=== PATIENT | female | born 1985 | race Caucasian/White ===

== ENCOUNTER 2018-10-08 13:52 | Outpatient (CLI) | payer BC ==
--- NOTE | 2018-10-08 15:19 | MRI ---
RIGHT SHOULDER MRI WITHOUT IV CONTRAST: HISTORY: Injury to right shoulder 1 year ago with pain. FINDINGS: Multiplanar, multisequence MRI examination of the right shoulder is performed. Very mild AC joint ar throsis changes are noted. Moderate downsloping of the lateral acromion. Supraspinatus, infraspinat us, subscapularis, and biceps tendons appear intact. Rotator cuff muscles are within normal limits o f signal and volume. There is evidence for a fairly prominent SLAP tear with anterior and posterior extension with some small paralabral cysts noted involving the superior posterior labrum. No acute o steochondral defect. IMPRESSION: Prominent superior labrum anterior to posterior tear with anterior posterior extension. No evidence for rotator cuff tear. Downsloping of the lateral acromion. POS: TPC
== END 2018-10-08 13:53 | disposition home or self-care (01) ==
LOC: TBSIIMAG 13:52
PROVIDERS: ATTEND Orthopaedic Surgery
DX: S49.91XA Unspecified injury of right shoulder and upper arm, initial encounter (principal); S43.401A Unspecified sprain of right shoulder joint, initial encounter

== ENCOUNTER 2018-12-15 08:00 | Day surgery (SDC) | payer BC ==
[2018-12-15 08:59] VITALS: BMI 33.3
[2018-12-15] MEDS ORDERED: hydrALAZINE 20 MG/ML VIAL SLOW IVP PRN (09:00)
--- NOTE | 2018-12-15 13:06 | PRG ---
DATE OF SERVICE: 12/15/2018 PRIMARY OB: David Beck DO, MS CHIEF COMPLAINT: Abdominal pain. HISTORY OF PRESENT ILLNESS: The patient is a 33-year-old G2, P1 female with an intrauterine at 37 weeks and 4 days, presenting with abdominal pains that have been irregular since last night. The patient awoke around 11:00 p.m. feeling cramping and got woken up this morning about 4 with stronger contractions have not gone away. Her main concern is that with her previous , she made it to the hospital with only 30 minutes to spare before the baby was born and is worried that she may not make it this time. The patient lives about an hour away from the hospital. The patient denies any vaginal bleeding or leakage of fluid. She denies any urinary urgency or frequency. She denies fever, fall, headache, chest pain, shortness of breath, nausea, vomiting, diarrhea, constipation, hip problems, knee problems, or muscle weakness. Denies any new rashes. PAST MEDICAL HISTORY: Negative. PAST SURGICAL HISTORY: Negative. ALLERGIES: NO KNOWN DRUG ALLERGIES. MEDICATIONS: vitamins. SOCIAL HISTORY: Denies drug, alcohol, or tobacco use. OB LABS: Blood type is O negative. Antibody screen is negative. Hepatitis B surface antigen in the first trimester is negative. HIV in the first trimester and third trimester negative. GC and chlamydia negative. She is rubella immune. Diabetes screen is 118. Third trimester VDRL is nonreactive. She is group B strep negative. REVIEW OF SYSTEMS: Per HPI. PHYSICAL EXAMINATION: VITAL SIGNS: Blood pressure is 134/80, heart rate of 104, and respiratory rate 18. GENERAL: She appears to be in no acute distress. She is alert, oriented, cooperative, and pleasant to interact with. HEAD: Normocephalic and atraumatic. LUNGS: Clear to auscultation bilaterally. ABDOMEN: Gravid and soft. EXTREMITIES: Nontender and nonedematous. Cervix per nursing staff is 2.5, 70, -2 station. heart tracing shows the fetus with a baseline 150 with moderate long-term variability, positive 15 x 15 accelerations, no decelerations. The tocometer showing contractions about every 15 to 20 minutes with some irritability in between. Repeat cervical exam is unchanged. ASSESSMENT AND PLAN: The patient is a 33-year-old G2, P1 female with an intrauterine at 37 weeks and 4 days, presenting with what may be late in labor. The patient has an appointment in a few hours with her primary OB and that we have encouraged that she keep. The patient has no evidence of active labor at this time and is comfortable. She is being discharged home and will be re-evaluated by Dr. Beck, later this afternoon. Fetus has a category 1 tracing, reactive NST. The patient has been given term labor precautions. Job ID: [id number]
== END 2018-12-15 11:20 | disposition home health service (06) ==
LOC: L&D/OP 08:00
PROVIDERS: ATTEND Obstetrics & Gynecology
DX: O99.89 Other specified diseases and conditions complicating pregnancy, childbirth and the puerperium (principal); R10.9 Unspecified abdominal pain; Z3A.37 37 weeks gestation of pregnancy
CPT/HCPCS: 99283

== ENCOUNTER 2018-12-30 05:30 | Inpatient (IN) | payer BC ==
--- NOTE | 2018-12-29 14:30 | PDOC.LDHP ---
Labor and Delivery H&P Chief complaint: scheduled induction HPI: Scheduled for IOL @ 39 weeks, elective. Current gestational age (weeks): 39 Due date: 01/01/19 Dating criteria: last menstrual period, first trimester ultrasound Grav: 2 Para: 1 OB History Details: 2017 8# Current complications: none Abnormal US findings: No Past Medical History: DIOP Current medications: pre- vitamins, other (fioricet for DIOP) Previous surgical history: none Allergies/Adverse Reactions: Allergies Allergy/AdvReac Type Severity Reaction Status Date / Time No Known Allergies Allergy Verified 10/08/16 15:01 Social history: none - Physical Exam Vital signs reviewed and normal: yes General: NAD Heart: RRR Lungs: CTAB Abdomen: gravid Extremeties: no edema - Vaginal Exam cm dilated: 4 Effacement: 50% Station: -2 - OB Labs Blood type: O RH: negative Antibody Screen: negative HIV: negative RPR: negative HEPSAg: negative 1 hour GCT: negative GBS: negative Urine drug screen: negative Rubella: immune - Assessment L&D Assessment: elective induction at term - Plan Plan: admit to L&D, labor augmentation if indicated, informed consent obtained, anesthesia consult for pain management
[2018-12-30] MEDS ORDERED: NS / Oxytocin 40 units/1000ml 1,000 ML IV PRN (05:51)
[2018-12-30] MEDS ORDERED: Promethazine HCl 25 MG/ML VIAL IM PRN ×2 (05:51→10:28)
[2018-12-30] MEDS ORDERED: Butorphanol Tartrate 1 MG/ML VIAL SLOW IVP PRN ×2 (05:51→22:30)
[2018-12-30] MEDS ORDERED: Lidocaine 1% (PF) 30 ML VIAL SC PRN (05:51)
[2018-12-30] MEDS ORDERED: Ondansetron PF 4 MG/2 ML Vial IVP PRN ×2 (05:51→10:28)
[2018-12-30] MEDS ORDERED: Ibuprofen 800 MG TAB PO PRN (05:51)
[2018-12-30] MEDS ORDERED: HYDROcodone/Acetaminophen 5/325 mg Tablet PO PRN ×2 (05:51)
[2018-12-30] MEDS ORDERED: hydrALAZINE 20 MG/ML VIAL SLOW IVP PRN ×2 (05:51→12:59)
[2018-12-30] MEDS ORDERED: NS w/ Oxytocin 10 units 500 ML IV SCH ×2 (06:00)
[2018-12-30 06:05] VITALS: BMI 33.7
[2018-12-30] MEDS: Lactated Ringer's 1,000 ML IV SCH ×2 (06:21→20:27)
[2018-12-30 06:38] LABS: Hemoglobin 12.1 g/dL (12.0-16.0); Mean Corpuscular HGB CONC 33.5 g/dL (32.0-36.0); Mean Corpuscular Hemoglobin 30.2 pg (27.0-31.0); Mean Corpuscular Volume 90.2 fL (78.0-98.0); Mean Platelet Volume 9.3 fL (7.4-10.4); Platelet Count 167 thou/uL (130-400); RBC Distribution Width 12.4 % (11.5-14.5); White Blood Cell (WBC) Count 7.8 thou/uL (4.8-10.8)
[2018-12-30 07:19] LABS: Syphilis Antibody Nonreactive (Nonreactive); Syphilis Antibody Index 0.06 S/CO (<1.00 Non-Reactive)
[2018-12-30 07:20] LABS: HBSAg Index 0.18 S/CO (0-0.99); Hep B Surf Ag Non-Reactive S/CO (NonReactive)
[2018-12-30] MEDS ORDERED: Mineral Oil ENEMA PR SCH (08:15)
[2018-12-30] MEDS ORDERED: Terbutaline Sulfate 1 MG/ML VIAL SC SCH (08:15)
--- NOTE | 2018-12-30 08:31 | PDOC.EVN ---
Event Note - Event Note Event Note: On presentation to L and D US confirms Silver breech presentation, normal NATACHA and SVE 5cm. Pt aware of risk and benefits of ECV as well as 1CS. Pt consents to ECV, will administer terbutaline and prepare OR if needed.
[2018-12-30] MEDS ORDERED: Bicitra 30 ML UDCUP ONE (08:57)
[2018-12-30] MEDS ORDERED: Oxytocin 10 UNITS/ML VIAL ONE (09:12)
[2018-12-30] MEDS ORDERED: Promethazine HCl 25 MG/ML VIAL ONE (09:13)
[2018-12-30] MEDS ORDERED: Fentanyl 100 MCG/2 ML VIAL ONE (09:13)
[2018-12-30] MEDS ORDERED: ePHEDrine/0.9% NaCl/PF SYRINGE 50 mg/10 ml ONE (09:13)
[2018-12-30] MEDS ORDERED: Succinylcholine Chloride 20 MG/ML 10 ml SYRINGE FS ONE (09:14)
[2018-12-30] MEDS ORDERED: MORPHINE 5 MG/10 ML PF VIAL ONE (09:25)
[2018-12-30] MEDS ORDERED: Bicitra 30 ML UDCUP PO SCH (09:30)
[2018-12-30] MEDS ORDERED: CEFAZOLIN 2 GM in Premix Bag 1 BAG IVPB SCH (09:30)
--- NOTE | 2018-12-30 09:37 | PDOC.EVN ---
Event Note - Event Note Event Note: ECV procedure note Surg Morris Assist [facility] US guided ECV trial Informed consent obtained Terbutaline given prior 0.25mg subcut Mineral oil applied to abdomen Attempts made to forward roll patient x 2, reverse roll attempted, unable to successfully complete version. FHT reassuring throughout procedure trial and mother tolerated procedure well. Consented for 1CS.
--- NOTE | 2018-12-30 10:16 | PDOC.OPDEL ---
OB Operative/Delivery Note Delivery Dr/Surgeon: Kiran Assist: Arturo/Sebastian Pre-Delivery Diagnosis: breech (failed ECV) Procedure/Post Delivery Dx: primary low transverse CS Weeks gestation: 39 Anesthesia: spinal - Findings A Sex: male - 1 min: 8 - 5 min: 9 - Additional Findings/Plan Placenta delivered: spontaneous findings: low transverse hysterotomy without extension, normal uterus, normal tubes, normal ovaries Estimated blood loss: 500ml, QBL pending Compilations/Other Findings: none, delivered from Silver breech Post delivery plan: routine recovery
[2018-12-30] MEDS ORDERED: Naloxone HCl 0.4 mg/ml Vial IVP PRN ×2 (10:28)
[2018-12-30] MEDS ORDERED: Naloxone HCl 0.4 mg/ml Vial IV PRN (10:28)
[2018-12-30] MEDS ORDERED: diphenhydrAMINE 50 MG/ML VIAL IVP PRN (10:28)
[2018-12-30] MEDS ORDERED: Ketorolac Tromethamine 30 MG/ML VIAL IVP PRN (10:28)
[2018-12-30] MEDS ORDERED: Promethazine HCl 25 MG SUPP PR PRN (10:28)
[2018-12-30] MEDS ORDERED: Communication Order-Pharmacy FS SCH (10:30)
[2018-12-30] MEDS ORDERED: Bisacodyl 10 MG SUPP PR PRN (12:59)
[2018-12-30] MEDS ORDERED: Acetaminophen 325 MG TAB PO PRN (12:59)
[2018-12-30] MEDS ORDERED: diphenhydrAMINE 25 MG CAP PO PRN (12:59)
[2018-12-30] MEDS ORDERED: Lanolin Ointment 7 GM TUBE TOP PRN (12:59)
[2018-12-30] MEDS ORDERED: Adacel (T-DAP) 0.5 ML SYRINGE IM ONE (12:59)
[2018-12-30] MEDS ORDERED: Simethicone Chewable 80 MG TAB PO PRN (12:59)
--- NOTE | 2018-12-30 15:12 | OP ---
DATE OF PROCEDURE: 12/30/2018 PREOPERATIVE DIAGNOSES: 1. Thirty-nine weeks gestation. 2. Kurt breech presentation. 3. Failed external cephalic version. POSTOPERATIVE DIAGNOSIS: Status post section. PROCEDURE PERFORMED: Primary low transverse section. ASSISTANTS: Iván Morris MD and Melissa Cortes MD. COMPLICATIONS: None. ESTIMATED BLOOD LOSS: Less than 500 mL. QBL: Pending. ANESTHESIA: Spinal. COMPLICATIONS: None. OPERATIVE FINDINGS: 1. Low-transverse hysterotomy without extension. 2. Clear amniotic fluid. 3. Male delivered from kurt breech presentation without difficulty. 4. Apgars 8 and 9, and weight pending at the time of dictation. 5. Surgical site hemostatic. 6. Normal-appearing uterus, tubes, and ovaries bilaterally. DESCRIPTION OF PROCEDURE: The patient was taken back to the OR with IV fluids running. When she was in the OR, spinal anesthesia was obtained. The patient was then placed in dorsal supine position with a left lateral tilt. Pham catheter was placed using sterile technique. 2 g of Ancef were administered, and the abdomen was prepped and draped in normal fashion for section. Surgeons were gowned and gloved. Anesthesia was tested and found to be adequate. A Pfannenstiel skin incision was made with a scalpel. The skin incision was carried down through the subcutaneous tissue to the fascia. Once the fascia was reached, it was incised in the midline and extended superolaterally using curved Baldwin scissors. Ladan clamps were then placed at the superior border of the fascia, which was sharply and bluntly dissected off the rectus abdominis muscles. In similar fashion, the Ladan clamps were placed at the inferior border of the fascia, which was dissected down towards the level of the pubic symphysis. The rectus muscles and peritoneum were bluntly and entered in the midline. An Jordan O retractor was placed into the peritoneal cavity for retraction, visualization, and protection of the wound. A bladder flap was created with a scalpel and the bladder flap was dissected away from the planned hysterotomy site. Allis clamps were used to elevate the myometrium. A scalpel was used to carefully enter the uterus. The uterus was then bluntly entered and stretched using a Stockton maneuver. Amniotomy was performed and clear fluid was noted. The infant's buttock was then delivered easily with gentle pressure with spontaneous delivery of the lower extremities. The upper extremities and head delivered spontaneously and without difficulty with gentle rotation. There was vigorous cry at the bedside. The nose and mouth were suctioned. The cord was doubly clamped and cut. The was handed off to special care nurses in attendance. Cord blood was collected. The placenta was delivered. Uterus was exteriorized, massaged to firm, and cleared of clot and debris. The uterus was returned to the abdominal cavity. The hysterotomy was closed using Monocryl suture in a running locked fashion. After the hysterotomy was closed, it was inspected and noted to be hemostatic. The hysterotomy and paracolic gutters were irrigated and suctioned dried. The hysterotomy was inspected again with no bleeding noted. The Jordan O retractor was removed from the abdominal cavity. The rectus muscles were inspected with no bleeding noted. The rectus fascia was reapproximated and closed with PDS suture from corner to corner and tied separately in the midline. Subcutaneous tissue was irrigated and any small areas of bleeding were controlled with Bovie cauterization. The subcutaneous tissue was reapproximated with plain gut. The skin was closed with 4-0 Monocryl and dressed with Dermabond dressing. The patient tolerated the procedure. There were no complications. The counts were correct. Job ID: [id number] [facility]
[2018-12-30] MEDS: Ferrous Sulfate 325 MG TAB PO SCH (23:02)
[2018-12-30] MEDS: Docusate Calcium (SURFAK) 240 MG CAP PO SCH (23:02)
[2018-12-31 06:35] LABS: Hemoglobin 10.7 g/dL (12.0-16.0); Mean Corpuscular HGB CONC 32.7 g/dL (32.0-36.0); Mean Corpuscular Hemoglobin 29.4 pg (27.0-31.0); Mean Corpuscular Volume 90.1 fL (78.0-98.0); Mean Platelet Volume 8.9 fL (7.4-10.4); Platelet Count 142 thou/uL (130-400); RBC Distribution Width 12.6 % (11.5-14.5); Red Blood Cell (RBC) Count 3.63 mill/uL (4.20-5.40); White Blood Cell (WBC) Count 8.5 thou/uL (4.8-10.8)
[2018-12-31] MEDS: Docusate Calcium (SURFAK) 240 MG CAP PO SCH ×2 (07:42→20:55)
[2018-12-31] MEDS: HYDROcodone/Acetaminophen 5/325 mg Tablet PO PRN ×3 (07:42→20:48)
[2018-12-31] MEDS: Prenatal Vitamin 1 TAB PO SCH (07:42)
[2018-12-31] MEDS: Ferrous Sulfate 325 MG TAB PO SCH ×2 (07:52→20:55)
--- NOTE | 2018-12-31 07:53 | PDOC.PP ---
Post Progress Note Post Day #: 1 Subjective: doing well, no concerns, tolerating diet, ambulated, minimal discomfort PO intake tolerated: yes Flatus: yes Ambulation: yes Vital Signs (12 hours) Temp Pulse Resp BP Pulse Ox 12/31/18 05:30 20 12/31/18 03:55 98.7 F 90 18 123/63 93 L 12/31/18 02:00 16 12/31/18 00:00 98.4 F 97 18 119/64 94 L 12/30/18 22:00 18 Weight Weight 203 lb - Physical Examination General: NAD Respiratory: non-labored breathing Abdominal: no distention Fundus firm & at: below umb Skin: CS incision dry & intact, no rash Psychiatric: A&Ox3, normal affect Result Diagrams: 12/31/18 06:05 Additional Labs: Post Labs Blood Type O NEGATIVE 12/30/18 06:16 Hep Bs Antigen Non-Reactive S/CO (NonReactive) 12/30/18 06:16 (1) Breech presentation delivered Code(s): O32.1XX0 - MATERNAL CARE FOR BREECH PRESENTATION, UNSP Status: Acute (2) Delivery by section Code(s): NVS3990 - Status: Acute - Assessment/Plan POD1, doing well sp 1CS for breech presentation after failed ECV. Doing well, likely DC tomorrow.
[2018-12-31] MEDS: Ibuprofen 800 MG TAB PO SCH ×2 (12:49→20:55)
[2019-01-01] MEDS: Ibuprofen 800 MG TAB PO SCH (05:26)
[2019-01-01] MEDS: HYDROcodone/Acetaminophen 5/325 mg Tablet PO PRN ×2 (05:26→09:34)
[2019-01-01 06:00] VITALS: BP 127/78; TEMP 97.8
[2019-01-01] MEDS: Docusate Calcium (SURFAK) 240 MG CAP PO SCH (09:33)
[2019-01-01] MEDS: Ferrous Sulfate 325 MG TAB PO SCH (09:33)
[2019-01-01] MEDS: Prenatal Vitamin 1 TAB PO SCH (09:33)
== END 2019-01-01 11:30 | disposition home or self-care (01) | DRG 788 ==
LOC: L&D 05:32 → 3SW 12:59
PROVIDERS: ADMIT Obstetrics & Gynecology; ATTEND Obstetrics & Gynecology
PROC: 10D00Z1 Extraction of Products of Conception, Low, Open Approach (ICD-10-PCS; principal; 2018-12-30)
PROC: 10S0XZZ Reposition Products of Conception, External Approach (ICD-10-PCS; 2018-12-30)
PROC: 3E0334Z Introduction of Serum, Toxoid and Vaccine into Peripheral Vein, Percutaneous Approach (ICD-10-PCS; 2018-12-30)
DX: O64.1XX0 Obstructed labor due to breech presentation, not applicable or unspecified (principal); Z3A.39 39 weeks gestation of pregnancy; Z37.0 Single live birth; O26.893 Other specified pregnancy related conditions, third trimester; Z67.41 Type O blood, Rh negative
CPT/HCPCS: 36415; 51702; 59412; 85027; 85461; 86780; 86850; 86900; 86901; 87340; 90384; 96372; J0690; J1885; J2274; J2550; J2590; J3010; J3105